=== PATIENT | male | born 1955 | race Caucasian/White ===

== ENCOUNTER 2017-11-27 06:46 | Day surgery (SDC) | payer OTHER ==
[2017-11-27] MEDS ORDERED: FENTAnyl 50 MCG/ML VIAL (08:19)
[2017-11-27] MEDS ORDERED: MIDAZOLAM 1 MG/ML 2 ML INJ ×2 (08:19)
== END 2017-11-27 14:26 | disposition home or self-care (01) ==
LOC: GIL 06:46
DX: K57.90 Diverticulosis of intestine, part unspecified, without perforation or abscess without bleeding (principal); K64.4 Residual hemorrhoidal skin tags
CPT/HCPCS: 45378